=== PATIENT | female | born 1965 | race Caucasian/White ===

== ENCOUNTER 2016-11-23 05:24 | Day surgery (SDC) | payer OTHER ==
[~2016-11-23] VITALS: Ht 172.7 cm; Wt 63.5 kg
[2016-11-23 05:52] VITALS: BP 124/64
[2016-11-23] MEDS ORDERED: IBUPROFEN800 MG PO (08:35)
[2016-11-23] MEDS ORDERED: ENDOCET 5-3251 EACH PO (08:35)
[2016-11-23 11:20] VITALS: BP 118/57
[2016-11-23 12:20] VITALS: BP 103/56
== END 2016-11-23 12:45 | disposition home or self-care (01) ==
LOC: SDC 05:24
DX: N92.0 Excessive and frequent menstruation with regular cycle (principal); N80.0 Endometriosis of uterus; D25.9 Leiomyoma of uterus, unspecified; Z80.1 Family history of malignant neoplasm of trachea, bronchus and lung
CPT/HCPCS: 88307; J0131; J0690; J1100; J1170; J1885; J2405; J2710; J3010